=== PATIENT | male | born 1985 | race African-American/Black ===

== ENCOUNTER 2018-01-07 19:16 | Emergency (ER) | payer BC ==
[2018-01-07 21:12] LABS: Urine Glucose NEGATIVE (NEG); Urine Specific Gravity 1.015 (1.005-1.030)
[2018-01-07 21:13] LABS: Urine Blood NEGATIVE (NEG); Urine Protein NEGATIVE (NEG)
[2018-01-07] MEDS ORDERED: CEFTRIAXONE 250 MG/VIAL ONE (21:19)
[2018-01-07] MEDS ORDERED: AZITHROMYCIN 250 MG TAB ONE (21:19)
[2018-01-07] MEDS ORDERED: WATER FOR INJ,STERILE 10 ML ONE (21:19)
[2018-01-07 21:28] LABS: Urine Bacteria <20 /HPF (NONE SEEN); Urine Culture Reflex Order NOT NEEDED; Urine RBC <5 /HPF (NONE SEEN)
--- NOTE | 2018-01-07 22:33 | EDPHYS ---
Physician Documentation [facility] Name: Josue Vences Age: 32 yrs Sex: Male : 1985 Arrival Date: 01/07/2018 Time: 19:19 Bed 27 Private MD: Out, [facility] ED Physician Sony Vines HPI: 01/07 21:41 This 32 yrs old Black Male presents to ER via Ambulatory with complaints of Urinary ps1 Problem. 21:41 The patient presents with a possible STD exposure, symptoms include dysuria, bloody ps1 penile discharge. Onset: The symptoms/episode began/occurred 2 week(s) ago. The patient has been recently seen at an urgent care, last week, for similar complaints. in reported monogamous relationship. Has dysuria and possible UTI/STD. Was seen and evaluated for same and treated. Had sexual contact and now has return of symptoms. No fever. No testicular pain. . Historical: - Allergies: 19:41 No Known Allergies; aj - Home Meds: 19:41 None [Active]; aj - PMHx: 19:41 None; aj - PSHx: 19:41 None; aj - Immunization history:: Adult Immunizations up to date. - Social history:: Smoking status: Patient/guardian denies using tobacco. - Ebola Screening: : Patient negative for fever greater than or equal to 101.5 degrees Fahrenheit, and additional compatible Ebola Virus Disease symptoms. ROS: 21:41 Constitutional: Negative for fever, chills, and weight loss, Eyes: Negative for injury, ps1 pain, redness, and discharge, Cardiovascular: Negative for chest pain, palpitations, and edema, Respiratory: Negative for shortness of breath, cough, wheezing, and pleuritic chest pain, Abdomen/GI: Negative for abdominal pain, nausea, vomiting, diarrhea, and constipation, Back: Negative for injury and pain. 21:41 : Positive for urinary symptoms, burning with urination, penile discharge. Exam: 21:41 Constitutional: This is a well developed, well nourished patient who is awake, alert, ps1 and in no acute distress. Head/Face: Normocephalic, atraumatic. Eyes: Pupils equal round and reactive to light, extra-ocular motions intact. Lids and lashes normal. Conjunctiva and sclera are non-icteric and not injected. Chest/axilla: Normal chest wall appearance and motion. Nontender with no deformity. No lesions are appreciated. Cardiovascular: Regular rate and rhythm. No gallops, murmurs, or rubs. Normal PMI, no JVD. No pulse deficits. Respiratory: Lungs have equal breath sounds bilaterally, clear to auscultation and percussion. No rales, rhonchi or wheezes noted. No increased work of breathing, no retractions or nasal flaring. Abdomen/GI: Soft, non-tender, with normal bowel sounds. No distension or tympany. No guarding or rebound. No evidence of tenderness throughout. 21:41 : Male external genitalia: Patient is not circumisioned. penile discharge, white, scant. Vital Signs: 19:41 BP 121 / 69; Pulse 64; Resp 16; Temp 98.6; Pulse Ox 98% on R/A; Weight 104.78 kg; aj Height 5 ft. 4 in. (162.56 cm); 22:39 BP 118 / 70; Pulse 69; Resp 16; Temp 98.7; Pulse Ox 100% on R/A; Pain 0/10; sr5 19:41 Body Mass Index 39.65 (104.78 kg, 162.56 cm) aj MDM: 21:16 Patient medically screened. ps1 21:41 Data reviewed: vital signs, nurses notes, lab test result(s). Special discussion: ps1 abstain from sexual intercourse until labs are confirmed as no STD or if your partner is symptomatic, until your partner is treated. . 01/07 20:46 Order name: Urine Dipstick--Ancillary (enter results); Complete Time: 21:16 sr5 01/07 20:46 Order name: Urine Culture sr5 01/07 20:46 Order name: Urine Microscopic Only; Complete Time: 21:30 sr5 01/07 21:45 Order name: GC (Supa/Chl) Probe URINE EDMS Administered Medications: 21:27 Drug: AZITHromycin 1 grams Route: PO; sr5 22:41 Follow up: Response: No adverse reaction sr5 21:28 Drug: Rocephin (cefTRIAXone) 250 mg Route: IM; Site: left deltoid; sr5 22:41 Follow up: Response: No adverse reaction sr5 Disposition: 01/07/18 22:32 Discharged to Home. Impression: Dysuria, Possible exposure to STD. . - Condition is Stable. - Discharge Instructions: Dysuria. - Work release form, Medication Reconciliation Form, Thank You Letter, Antibiotic Education, Prescription Opioid Use form. - Follow up: Emergency Department; When: As needed; Reason: Worsening of condition. Follow up: Private Physician; When: As needed; Reason: Recheck today's complaints, Continuance of care, Re-evaluation by your physician. - Problem is an ongoing problem. - Symptoms have worsened. Signatures: Dispatcher [employer] [facility] Meli Barney RN RN aj Francisco Velasquez RN RN sr5 Sony Vines MD MD ps1 Corrections: (The following items were deleted from the chart) 21:45 21:05 GC (Gonorr/Clamydia) Probe+R.LAB.BRZ ordered. [facility] 22:42 22:32 01/07/2018 22:32 Discharged to Home. Impression: Dysuria; Possible exposure to sr5 STD. . Condition is Stable. Discharge Instructions: Dysuria. Forms are Medication Reconciliation Form, Thank You Letter, Antibiotic Education, Prescription Opioid Use. Follow up: Emergency Department; When: As needed; Reason: Worsening of condition. Follow up: Private Physician; When: As needed; Reason: Recheck today's complaints, Continuance of care, Re-evaluation by your physician. Problem is an ongoing problem. Symptoms have worsened. ps1
--- NOTE | 2018-01-07 22:33 | ER ---
Nurse's Notes [facility] Name: Josue Vences Age: 32 yrs Sex: Male : 1985 Arrival Date: 01/07/2018 Time: 19:19 Bed 27 Private MD: Out, [facility] Diagnosis: Dysuria;Possible exposure to STD. Presentation: 01/07 19:40 Presenting complaint: Patient states: Burning with urination and urinary discomfort for aj 3 weeks. Seen by urgent care and given ABX. Patient reports symptoms returned. Reports clear discharge. Transition of care: patient was not received from another setting of care. Onset of symptoms was December 16, 2017. Care prior to arrival: None. 19:40 Method Of Arrival: Ambulatory 19:40 Acuity: VA 4 aj 22:41 Risk Assessment: Do you want to hurt yourself or someone else? Patient reports no sr5 desire to harm self or others. Initial Sepsis Screen: Does the patient meet any 2 criteria? No. Patient's initial sepsis screen is negative. Does the patient have a suspected source of infection? No. Patient's initial sepsis screen is negative. Triage Assessment: 19:41 General: Appears in no apparent distress. comfortable, Behavior is calm, cooperative, aj appropriate for age. Pain: Denies pain. Neuro: Level of Consciousness is awake, alert, obeys commands, Oriented to person, place, time, situation, Appropriate for age. Respiratory: Airway is patent Respiratory effort is even, unlabored, Respiratory pattern is regular, symmetrical. : Reports burning with urination, discharge, watery. Derm: Skin is intact, is healthy with good turgor, Skin is pink, warm \T\ dry. normal. Historical: - Allergies: 19:41 No Known Allergies; aj - Home Meds: 19:41 None [Active]; aj - PMHx: 19:41 None; aj - PSHx: 19:41 None; aj - Immunization history:: Adult Immunizations up to date. - Social history:: Smoking status: Patient/guardian denies using tobacco. - Ebola Screening: : Patient negative for fever greater than or equal to 101.5 degrees Fahrenheit, and additional compatible Ebola Virus Disease symptoms. Screenin:39 Abuse screen: Denies threats or abuse. Nutritional screening: No deficits noted. sr5 Tuberculosis screening: No symptoms or risk factors identified. Fall Risk None identified. Assessment: 22:39 Reassessment: Pt continues to be fully AA\T\Ox4, equal unlabored resp, skin warm/dry/nc, sr5 no reported reaction to medication admin. No further questions. DC steady gait out of ER. Vital Signs: 19:41 BP 121 / 69; Pulse 64; Resp 16; Temp 98.6; Pulse Ox 98% on R/A; Weight 104.78 kg; aj Height 5 ft. 4 in. (162.56 cm); 22:39 BP 118 / 70; Pulse 69; Resp 16; Temp 98.7; Pulse Ox 100% on R/A; Pain 0/10; sr5 19:41 Body Mass Index 39.65 (104.78 kg, 162.56 cm) ED Course: 19:19 Patient arrived in ED. es 19:19 Out, [facility] is Private Physician. es 19:40 Triage completed. aj 19:41 Arm band placed on right wrist. Patient placed in an exam room. aj 20:24 Sony Vines MD is Attending Physician. ps1 20:31 Francisco Velasquez, RN is Primary Nurse. sr5 22:39 Patient has correct armband on for positive identification. Bed in low position. Call sr5 light in reach. 22:39 No provider procedures requiring assistance completed. Urine collected: clean catch sr5 specimen. Patient did not have IV access during this emergency room visit. Administered Medications: 21:27 Drug: AZITHromycin 1 grams Route: PO; sr5 22:41 Follow up: Response: No adverse reaction sr5 21:28 Drug: Rocephin (cefTRIAXone) 250 mg Route: IM; Site: left deltoid; sr5 22:41 Follow up: Response: No adverse reaction sr5 Outcome: 22:32 Discharge ordered by . ps1 22:39 Discharged to home ambulatory. sr5 22:39 Condition: good 22:39 Discharge instructions given to patient, Instructed on discharge instructions, follow up and referral plans. medication usage, Demonstrated understanding of instructions, follow-up care, medications. 22:42 Patient left the ED. sr5 Signatures: Meli Barney RN RN Aisha Casas Sam RN RN sr5 Sony Vines MD MD ps1
[2018-01-10 18:53] LABS: C.trachomatis RNA,TMA Not Detected (Not Detected)
== END 2018-01-07 22:42 | disposition home or self-care (01) ==
LOC: ER 19:16
DX: R30.0 Dysuria (principal); Z20.2 Contact with and (suspected) exposure to infections with a predominantly sexual mode of transmission
CPT/HCPCS: 81003; 81015; 87086; 87088; 87490; 87590; 96372; 99283; J0696